=== PATIENT | male | born 1995 | race African-American/Black ===

== ENCOUNTER 2022-08-03 17:45 | Emergency (ER) | payer OTHER ==
[~2022-08-03] VITALS: Ht 172.7 cm; Wt 90.7 kg
--- NOTE | 2022-08-03 17:55 | NUR ---
RECEIVED PT 26 MALE TRANSFER FROM SNF BY EMT FOR BLDING ON RT EAR DRY OLD DARK BLOOD PT WITH TRACH FR #6 CONNECTED TO VENT SITTING AC 18 TV 550 PEEP 5 FIO2 40% RT at bed side O2 SAT 98 % UNRESPONSIVE
--- NOTE | 2022-08-03 18:20 | NUR ---
SEEN BY DR. ESCOBEDO
[2022-08-03] MEDS ORDERED: OFLO5DRO5 RIGHT EAR (18:21)
[2022-08-03] MEDS ORDERED: OFLOXACIN OTIC SOLN 5 ML BOTTLE EACH EAR ONE (18:30)
--- NOTE | 2022-08-03 18:35 | NUR ---
spook with nurse in [facility] about plan of care d/c and transfer back with RX AND PROVIDER SPOOK subacue not accepted pt back
--- NOTE | 2022-08-03 19:30 | NUR ---
HAND OFF YASMIN ANTHONY
--- NOTE | 2022-08-03 19:40 | NUR ---
RT pt received on mechanical vent with current vent settings. trached, portex 6 bivona. no sob, no resp distress at this time.
--- NOTE | 2022-08-03 19:45 | NUR ---
RECEIVED PATIENT LYING IN BED ATTACHED TO VENT. CAME EARLIER FROM SNF D/T BLEEDING IN THE EARS. PATIENT IS SUPPOSED TO BE DISCHARGE BUT FACILITY REFUSED TO ACCEPT PATIENT. PT NOT IN CP DISTRESS, -SOB, -CP. WILL CONTINUE TO MONITOR.
--- NOTE | 2022-08-03 20:20 | NUR ---
CALLED [facility] FOR TRANSPORT. WAS INFORMED NO RT AVAILABLE UNTIL 08-04-22 1000
--- NOTE | 2022-08-03 20:30 | NUR ---
CALLED [facility] FOR TRANSPORT NO RT AVAILABLE UNTIL TOMORROW AFTER 0900
--- NOTE | 2022-08-03 22:59 | NUR ---
[facility] HAS NO RT AVAILABLE FOR TRANSPORTATION
--- NOTE | 2022-08-04 00:10 | NUR ---
[facility] HAS NO RT TRANSPORTATION
--- NOTE | 2022-08-04 00:42 | NUR ---
[facility] DOES NOT HAVE RT TRANSPORTATION AVAILABLE
--- NOTE | 2022-08-04 04:30 | NUR ---
PATIENT IS ASLEEP BUT RESPONDS TO PAINFUL STIMULI. VITALS CHECKED AND RECORDED. PATIENT STILL ATTACHED TO VENT SATS 98%
--- NOTE | 2022-08-04 06:39 | NUR ---
[facility] WITH RT TRANSPORTATION ARRANGED WITH [facility] FOR 2176
--- NOTE | 2022-08-04 07:20 | NUR ---
RECEIVED PT from [facility] RN pt with tach connected vent siting TV 550 FIO2 40% TV 550 PEEP 5 AC 18 PT UNRESPONSIVE
--- NOTE | 2022-08-04 09:00 | NUR ---
CALLED [facility] [phone] HAND OFF CHASTITY ANTHONY ANSWER ALL CONCERN
--- NOTE | 2022-08-04 12:45 | NUR ---
Transer back to [facility] by vent and RT EMT
[2022-08-04 13:15] VITALS: BP 118/78
== END 2022-08-04 13:19 ==
LOC: ER 17:48
DX: H65.91 Unspecified nonsuppurative otitis media, right ear (principal); J96.10 Chronic respiratory failure, unspecified whether with hypoxia or hypercapnia
CPT/HCPCS: 31720